=== PATIENT | female | born 1955 | race Two or more races ===

== ENCOUNTER 2018-03-10 10:28 | Emergency (ER) | payer OTHER ==
[~2018-03-10] VITALS: Ht 152.4 cm; Wt 56.7 kg
[~2018-03-10 10:28] MED LIST: ATARAX25 MG PO; BENADRYL25 MG PO; LOTREL 5-10 MG1 CAP; LOTREL 5/40 MG1 CAP; SEPTRA DS TABLE1 TAB PO; TUSSI PRES-B L120 M1 PO; VASOTEC20 MG PO; ZYRTEC10 M3 PO
[2018-03-10] MEDS ORDERED: [UNRECOGNIZED DRUG - OTHER] (10:46)
== END 2018-03-10 12:01 | disposition home or self-care (01) ==
LOC: ER 10:28
DX: J45.998 Other asthma (principal)

== ENCOUNTER 2019-01-13 07:43 | Emergency (ER) | payer OTHER ==
[~2019-01-13] VITALS: Ht 152.4 cm; Wt 56.7 kg
[~2019-01-13 07:43] MED LIST changes: +[UNRECOGNIZED DRUG - OTHER]
== END 2019-01-13 14:03 | disposition home or self-care (01) ==
LOC: ER 07:43
DX: N39.0 Urinary tract infection, site not specified (principal); R10.2 Pelvic and perineal pain

== ENCOUNTER 2022-06-25 15:21 | Emergency (ER) | payer OTHER ==
[~2022-06-25] VITALS: Ht 149.9 cm; Wt 59.0 kg
[2022-06-25] MEDS ORDERED: LOSARTAN POTASS50 MG PO (16:05)
[2022-06-25] MEDS ORDERED: NORVASC2.5 M1 PO (16:05)
[2022-06-25] MEDS ORDERED: LIPITOR20 MG PO (16:05)
== END 2022-06-25 21:35 | disposition home or self-care (01) ==
LOC: ER 15:21
DX: J45.901 Unspecified asthma with (acute) exacerbation (principal); Z20.822 Contact with and (suspected) exposure to COVID-19

== ENCOUNTER 2024-08-12 01:02 | Emergency (ER) | payer OTHER ==
[~2024-08-12] VITALS: Ht 162.6 cm; Wt 68.0 kg
[~2024-08-12 01:02] MED LIST changes: +LIPITOR20 MG PO; +LOSARTAN POTASS50 MG PO; +NORVASC2.5 M1 PO
[2024-08-12] MEDS ORDERED: METOCLOPRAMIDE HCL 5 MG/ML VIAL IM STA (02:49)
[2024-08-12] MEDS ORDERED: RINGERS SOLUTION,LACTATED 500 ML IV STA (02:50)
[2024-08-12] MEDS ORDERED: FAMOtidine 10 MG/ML (4ML VIAL) IV PUSH STA (02:51)
[2024-08-12] MEDS ORDERED: DIPHENOXYLATE HCL/ATROPINE 1 UDTAB TABLET PO STA (02:52)
[2024-08-12] MEDS ORDERED: HYOSCYAMINE SULFATE 0.125 MG TAB.SUBL SL ONE (03:00)
== END 2024-08-12 07:48 | disposition home or self-care (01) ==
LOC: ER 01:02
DX: K52.9 Noninfective gastroenteritis and colitis, unspecified (principal); Z88.1 Allergy status to other antibiotic agents
CPT/HCPCS: 96365; 96372; 99282; J2765; J3490

== ENCOUNTER → 2025-08-09 | Emergency (ER) | payer OTHER ==
[~2025-08-09] VITALS: Ht 121.9 cm; Wt 61.7 kg
== END | disposition home or self-care (01) ==
LOC: ER 08:15
DX: L03.311 Cellulitis of abdominal wall (principal); I10 Essential (primary) hypertension; Z88.6 Allergy status to analgesic agent; Z88.2 Allergy status to sulfonamides; Z88.0 Allergy status to penicillin